=== PATIENT | female | born 1950 | race Two or more races ===

== ENCOUNTER → 2019-06-27 | Outpatient (CLI) | payer OTHER ==
--- NOTE | 2019-06-27 14:27 | RAD ---
Examination: Diagnostic left breast ultrasound. INDICATION: 69-year-old woman with 6 month history of bloody left nipple discharge recommended for ultrasound-guided core needle biopsy of intraductal masses in the subareolar left breast seen on outside facility ultrasound. By report, no prior ductogram has been performed. COMPARISON: Bilateral diagnostic mammogram of 02/16/2019, limited left breast ultrasound of 03/01/2019 and bilateral mammogram of 04/21/2019. TECHNIQUE AND FINDINGS: Grayscale and color Doppler imaging of the subareolar left breast was performed, identifying small, solid papillary projections in dilated subareolar duct corresponding with the previous left breast ultrasound findings at the 12:00 position that were recommended for biopsy. However, lacking additional information from a ductogram to delineate the extent of arborization of the intraductal papillary projections, and mindful of the likely need for elective surgical referral, I elected to defer the ultrasound-guided core needle biopsy scheduled for today in favor of performing a ductogram for better delineation of the extent of intraductal filling defects and a scheduled surgical consultation for discussion of risks and benefits of surgical excision, including excisional biopsy if ductogram fails or patient elects to have excisional biopsy rather than ultrasound-guided core needle biopsy. I discussed this with the patient's referring provider Gloria De Paz who agreed with the plan of care in rescheduling the patient for a ductogram and soon thereafter, a surgical consult. I also discussed with the patient via the site speaking tool setter apprentice service over the telephone. The patient was accompanied by her daughter. Their questions were answered to their satisfaction. IMPRESSION: Incomplete. Additional imaging is needed. Ductography for more comprehensive evaluation is recommended. A surgical consultation is also recommended. BI-RADS Category 0 Incomplete. Needs additional imaging evaluation. Left ductogram recommended. Electronically signed by: Selena Zelaya MD (06/27/2019 2:24 PM) [id number]
== END | disposition home or self-care (01) ==
LOC: US 11:49
PROVIDERS: ATTEND Nurse Practitioner Family
DX: N63.20 Unspecified lump in the left breast, unspecified quadrant (principal)
CPT/HCPCS: 76641

== ENCOUNTER → 2019-07-13 | Outpatient (CLI) | payer OTHER ==
[~2019-07-13] MED LIST: IOHEXOL 300 MG/ML 50 ML VIAL. IJ ONE
--- NOTE | 2019-07-14 13:47 | RAD ---
Examination: DUCTOGRAM MULT DUCT LT W/INJ, BREAST LEFT History: Bloody discharge from the left nipple Comparison/Correlation: 02/16/2019 mammographic images, 03/01/2019 Limited left breast ultrasound exam performed at an outside facility, 06/27/2019 left breast ultrasound exam Findings: Risks and benefits of discography were discussed with the patient via a [place] Islander speaking crocodile farmer. Informed consent was obtained. The nipple was compressed and bloody discharge was expressed from a left lower outer pore. The patient was then placed supine. Cleansing of the left nipple, areola and periareolar region with Betadine was performed. The left lower outer duct opening was cannulated successfully. Tape was then placed over the cannula and left nipple. 0.2 cc contrast was injected. Lateral medial and CC full field digital images were obtained. Contrast is noted within the left lower outer ductal system. Distention of the duct is noted at the subareolar aspect. Definite filling defect is not identified although stricture appears to present involving the duct just posterior to its distended, anterior component. Scattered fibroglandular densities are present similar upon correlation with the prior exam. Limited left breast ultrasound exam of the lower outer aspect was performed. Ductal ectasia is present at the subareolar aspect. There is intermediate echogenicity within the posterior aspect of this region of dilatation zone representing clot. It is not present on the prior exam. No flow is evident within it or surrounding this region. Ultrasound imaging of the left axilla was performed. No suspicious left axillary finding. No definite lymph node identified. Impression: BI-RADS Category 4A-suspicious for malignancy. Stricture involving a left lower outer duct near the nipple in this patient with bloody nipple discharge. Surgical consultation is recommended in determining further assessment. On 07/14/2019 at 1:40 PM, results were discussed with the referring provider. Electronically signed by: Tony Kruger MD (07/14/2019 1:44 PM) [id number]
== END ==
LOC: MAMMO 09:36
PROVIDERS: ATTEND Nurse Practitioner Family
DX: N64.52 Nipple discharge (principal)
CPT/HCPCS: 19030; 76641; 77054; Q9967

== ENCOUNTER → 2019-10-05 | Outpatient (CLI) | payer OTHER ==
[~2019-10-05] MED LIST changes: +ATOR10TA60 PO; +HYDR-3164 PO; -IOHEXOL 300 MG/ML 50 ML VIAL. IJ ONE; +LISI10TA2 PO; +METF10007 PO; +OXYC1TAB15 PO
== END | disposition home or self-care (01) ==
LOC: LAB 13:52
PROVIDERS: ATTEND Surgery
DX: Z11.59 Encounter for screening for other viral diseases (principal)
CPT/HCPCS: U0003-CS

== ENCOUNTER 2019-10-12 07:26 | Day surgery (SDC) | payer OTHER ==
[~2019-10-12] VITALS: Ht 157.5 cm; Wt 78.5 kg
[~2019-10-12 07:26] MED LIST changes: +ACETAMINOPHEN 500 MG TABLET PO PRN; -ATOR10TA60 PO; -HYDR-3164 PO; +HYDROmorphone 2 MG/ML VIAL IV PRN; +IV RINGERS,LACTATED 1000ML 1,000 ML IV SCH; +MORPHINE SULFATE 2 MG/ML VIAL. IV PRN; +ONDANSETRON PF 4 MG/2 ML VIAL. IV PRN; -OXYC1TAB15 PO; +PROCHLORPERAZINE 10 MG/2 ML VIAL. IV PRN; +fentaNYL PF VIAL 100 MCG/2 ML VIAL IV PRN
[2019-10-12] MEDS ORDERED: ONDANSETRON PF 4 MG/2 ML VIAL. ONE (09:05)
[2019-10-12] MEDS ORDERED: PROPOFOL 10 MG/ML (20ML) VIAL. IV ONE (09:05)
[2019-10-12] MEDS ORDERED: DEXAMETHASONE SOD PHOS 4 MG/ML VIAL ONE (09:05)
[2019-10-12] MEDS ORDERED: LIDOCAINE 2% PF 5 ML VIAL. ONE (09:05)
[2019-10-12] MEDS ORDERED: fentaNYL PF VIAL 100 MCG/2 ML VIAL ONE (09:08)
[2019-10-12] MEDS ORDERED: INSULIN LISPRO 100 UNIT/ML 3ML VIAL for OP,RR ONLY. SQ PRN (09:15)
[2019-10-12] MEDS ORDERED: BUPIVACAINE-EPI 0.25%-1:200000 MPF 30 ML VIAL. ONE (09:40)
[2019-10-12] MEDS: ceFAZolin SODIUM IV Push 1 GM VIAL. IVP PRN (09:48)
--- NOTE | 2019-10-12 10:40 | PDOC4 ---
Operative Note Operative Note Date: October 12, 2019 at 1038 Preoperative diagnosis: Left breast mass Postoperative diagnosis: Same Procedure: Excisional breast biopsy left breast Surgeon: Ayaan Specimen: Left breast biopsy Dictation: Patient is a 69-year-old female is noticed a lump in her left breast right of the nipple areolar complex on the left side mammogram confirms this is suspicious lesion. Procedure of excisional biopsy was explained to the patient detail risk-benefit were also discussed including bleeding infection alternatives to this procedure also discussed with the patient who seemed to understand and gave both verbal and written consent the procedure performed. Patient was taken to the operating room placed in supine position general anesthesia was initiated once patient was sleeping intubated her left breast was prepped and draped in usual sterile fashion using ChloraPrep. Area around the mass was injected with quarter percent Marcaine with epinephrine and incision was made with 15 blade scalpel this carried down through the subcutaneous tissues electrocautery right hemostasis disc completely excised the mass. The mass was sent for pathology with a long stitch on the lateral aspect of the specimen and a short stitch on the superior border of the specimen. Wound was then closed in 2 layers the deep layer running 3-0 Vicryl and the skin was reapproximated 4-0 subcuticular Monocryl Mastisol Steri-Strips and island dressings were applied. Patient was awakened extubated in the operating room taken to recovery in stable condition all sponge instrument needle counts listed as correct. NARCISA REICH MD Oct 12, 2019 10:40
--- NOTE | 2019-10-12 10:42 | DISCH ---
DISCHARGE INSTRUCTIONS Condition on Discharge Condition on Discharge: Stable Activity After Discharge Activity Instructions for Disc: No restrictions Diet after Discharge Diet after Discharge: Regular Wound Incision Care Other wound/incision instructi: May shower in 24 hours Contacting the after DC Call your doctor for: If your condition worsens Follow-Up Follow up with: Dr. Reich in 2 weeks NARCISA REICH MD Oct 12, 2019 10:42
[2019-10-12] MEDS ORDERED: HYDROcodone/APAP 5/325MG 1 TAB TABLET ONE (11:41)
[2019-10-12] MEDS ORDERED: HYDROcodone/APAP 5/325MG 1 TAB TABLET PO ONE (11:45)
[2019-10-12 11:47] VITALS: BP 169/70
[2019-10-12] MEDS ORDERED: HYDR-3164 PO (12:04)
== END 2019-10-12 13:02 | disposition home or self-care (01) ==
LOC: SURG 07:26
PROVIDERS: ATTEND Surgery
DX: N63.20 Unspecified lump in the left breast, unspecified quadrant (principal); Z79.899 Other long term (current) drug therapy
CPT/HCPCS: 19120; 82962; J0690; J1100; J2405; J2704; J3010; J3490; A7015

== ENCOUNTER → 2019-11-24 | Outpatient (CLI) | payer OTHER ==
[~2019-11-24] MED LIST changes: -ACETAMINOPHEN 500 MG TABLET PO PRN; +HYDR-3164 PO; -HYDROmorphone 2 MG/ML VIAL IV PRN; -IV RINGERS,LACTATED 1000ML 1,000 ML IV SCH; -MORPHINE SULFATE 2 MG/ML VIAL. IV PRN; -ONDANSETRON PF 4 MG/2 ML VIAL. IV PRN; -PROCHLORPERAZINE 10 MG/2 ML VIAL. IV PRN; -fentaNYL PF VIAL 100 MCG/2 ML VIAL IV PRN
== END ==
LOC: LAB 14:05
PROVIDERS: ATTEND Internal Medicine Gastroenterology
DX: Z20.828 Contact with and (suspected) exposure to other viral communicable diseases (principal)
CPT/HCPCS: U0003-CS

== ENCOUNTER 2019-12-14 07:22 | Observation (INO) | payer OTHER ==
[~2019-12-14] VITALS: Ht 157.5 cm; Wt 78.0 kg
[2019-12-14] VITALS (7 sets, daily range): BP systolic 97–142; BP diastolic 48–74
[~2019-12-14 07:22] MED LIST changes: +ACETAMINOPHEN 500 MG TABLET PO PRN; +HYDROmorphone 2 MG/ML VIAL IV PRN; +ONDANSETRON PF 4 MG/2 ML VIAL. IV PRN; +PROCHLORPERAZINE 10 MG/2 ML VIAL. IV PRN; +ceFAZolin SODIUM IV Push 1 GM VIAL. IVP PRN; +fentaNYL PF VIAL 100 MCG/2 ML VIAL IV PRN
[2019-12-14] MEDS ORDERED: ATOR10TA60 PO (07:41)
--- NOTE | 2019-12-14 07:45 | PDOC1 ---
History and Physical Date of Admission Date of Admission DATE: 12/14/19 TIME: 07:41 Identification/Chief Complaint Chief Complaint Left breast cancer Source Source: Chart review, Patient History of Present Illness History of Present Illness 69-year-old female had excisional biopsy of a left breast mass which showed to be invasive ductal carcinoma. After discussions with her family she wishes to have a left mastectomy with sentinel lymph node biopsy as well as a prophylactic right mastectomy Past Medical History Cardiovascular: HTN Endocrine: Diabetes Past Surgical History Past Surgical History: Breast Biopsy (Left breast) Family History Family History: No Significant Social History Smoke: No ALCOHOL: none Drugs: None Current Medications Current Medications Current Medications Ondansetron HCl (Zofran) 4 mg PRN Q6HRS PRN IV NAUSEA/VOMITING; Start 12/14/19 at 07:00; Stop 12/15/19 at 06:59 Fentanyl Citrate (Fentanyl 2ml Vial) 25 mcg PRN Q5MIN PRN IV MILD PAIN 1-3; Start 12/14/19 at 07:00; Stop 12/15/19 at 06:59 Fentanyl Citrate (Fentanyl 2ml Vial) 50 mcg PRN Q5MIN PRN IV MODERATE TO SEVERE PAIN; Start 12/14/19 at 07:00; Stop 12/15/19 at 06:59 Morphine Sulfate (Morphine Sulfate) 1 mg PRN Q10MIN PRN IV SEVERE PAIN 7-10; Start 12/14/19 at 07:00; Stop 12/15/19 at 06:59 Ringer's Solution 1,000 ml @ 30 mls/hr Q24H IV ; Start 12/14/19 at 07:00; Stop 12/14/19 at 18:59 Hydromorphone HCl (Dilaudid) 0.5 mg PRN Q10MIN PRN IV SEV PAIN, Second choice; Start 12/14/19 at 07:00; Stop 12/15/19 at 06:59 Prochlorperazine Edisylate (Compazine) 5 mg PACU PRN PRN IV NAUSEA, MRX1; Start 12/14/19 at 07:00; Stop 12/15/19 at 06:59 Acetaminophen (Tylenol) 1,000 mg PRN 1X PRN PO PRIOR TO PROCEDURE; Start 12/14/19 at 06:00; Stop 12/14/19 at 18:00 Cefazolin Sodium (Ancef) 1 gm 1X PREOP PRN IVP PRIOR TO PROCEDURE; Start 12/14/19 at 06:00; Stop 12/14/19 at 18:00 Active Scripts Active Reported Atorvastatin Calcium 10 Mg Tablet 1 Tab PO DAILY Lisinopril 10 Mg Tablet 10 Mg PO DAILY Metformin Hcl 1,000 Mg Tablet 1,000 Mg PO BIDWMEALS Allergies Allergies: Coded Allergies: No Known Drug Allergies (Unverified , 12/14/19) Physical Exam General: Alert, Oriented X3, Cooperative, No acute distress HEENT: Atraumatic, PERRLA, EOMI Lungs: Clear to auscultation, Normal air movement Heart: RRR, no murmurs Breasts: Abnormal mass palpable (Left breast mass) Abdomen: Normal bowel sounds, Soft, No tenderness Rectal Exam: not examined Extremities: No edema Skin: No significant lesion Neuro: Normal speech Psych/Mental Status: Mental status NL VTE Prophylaxis Ordered VTE Prophylaxis Devices: Yes VTE Pharmacological Prophylaxi: Contraindicated Assessment/Plan Assessment/Plan Left breast invasive ductal carcinoma plan for left mastectomy with sentinel lymph node biopsy as well as prophylactic right mastectomy Justifications for Admission Other Justification NARCISA REICH MD Dec 14, 2019 07:45
[2019-12-14] MEDS: IV RINGERS,LACTATED 1000ML 1,000 ML IV SCH ×2 (07:52→12:36)
[2019-12-14] MEDS ORDERED: ISOSULFAN BLUE 1% 50 MG/5 ML VIAL. SQ ONE (08:53)
[2019-12-14] MEDS ORDERED: BUPIVACAINE-EPI 0.5%-1:200000 MPF 30 ML VIAL. ONE (08:53)
[2019-12-14] MEDS ORDERED: hydrALAZINE 20 MG/ML VIAL. ONE (11:07)
[2019-12-14] MEDS ORDERED: ONDANSETRON PF 4 MG/2 ML VIAL. ONE (11:08)
[2019-12-14] MEDS ORDERED: PROPOFOL 10 MG/ML (20ML) VIAL. IV ONE (11:08)
[2019-12-14] MEDS ORDERED: LIDOCAINE 2% PF 5 ML VIAL. ONE (11:08)
[2019-12-14] MEDS ORDERED: DEXAMETHASONE SOD PHOS 4 MG/ML VIAL ONE (11:09)
[2019-12-14] MEDS ORDERED: SEVOFLURANE 61 TO 120 MINUTES. IH ONE (11:09)
[2019-12-14] MEDS ORDERED: fentaNYL PF VIAL 100 MCG/2 ML VIAL ONE ×2 (11:23→12:08)
[2019-12-14] MEDS ORDERED: FAMOTIDINE 20 MG/2 ML VIAL ONE (11:23)
[2019-12-14] MEDS ORDERED: KETOROLAC 30 MG/ML VIAL. ONE (11:25)
--- NOTE | 2019-12-14 11:54 | PDOC4 ---
Operative Note Operative Note Date: 2019 at 1149 Preoperative diagnosis: Left breast cancer Postoperative diagnosis: Same Procedure: Left mastectomy with left sentinel lymph node biopsy right prophylactic mastectomy Specimen: Left breast, right breast, left sentinel lymph node Surgeon: Ayaan Dictation: Patient is a 69-year-old female whose had biopsy-proven ductal carcinoma of the left breast. Procedure of mastectomy with sentinel lymph node biopsy was explained to the patient detail respite effects were also discussed including bleeding infection alternatives to this procedure also discussed with the patient who seemed to understand and gave both verbal and written consent to have the procedure performed. Patient was taken to the operating room placed in the supine position general anesthesia was initiated once patient was sleeping intubated her chest and axilla were prepped and draped usual sterile fashion using ChloraPrep. An area around the left nipple areolar complex was injected with Lymphazurin once this was all been injected in 4 quadrants is allowed to percolate for 10 minutes at that point an area in the left axilla which was hot by the counter was marked and incised with 15 blade scalpel is carried down thr ough the subcutaneous tissue using electrocautery right hemostasis a blue marked lymph channel was followed down to a fairly large lymph node in the left axilla this was excised and sent for pathology. Tensions were then turned to the mastectomy elliptical incision around the nipple areolar complex was extended proximally and distally this carried down through the subcutaneous tissues electrocautery right hemostasis electrocautery was used to fully excise the breast from the margins of the clavicle to the sternum to the latissimus laterally and the inframammary fold medially. The breast was sent for pathology marked with a long stitch lateralshort stitch in the superior margin. Hemostasis was controlled with electrocautery. Attention was then turned to the right breast similarly was excised using a 10 blade scalpel to make the incision and followed with electrocautery fully excise the breast with the same margins superior clavicle medial sternum inframammary fold inferiorly and the latissimus laterally. The specimen was similarly marked with a suture. Electrocautery was used to control hemostasis and then the wounds both sides were closed in 2 layers the deep layer 3 oh single interrupted Vicryls 2 7 [place] AVIS flat drains were placed on the anterior chest wall beneath the subcutaneous tissue these were brought out through a separate stab incision in the lateral inferior aspect of the incision these were sewn into place with 2-0 silk sutures. Skin was closed with 4-0 subcuticular Monocryl Mastisol Steri-Strips and 4 x 4's and Medipore tape were applied as a dressing. Patient was awakened and extubated in the operating room taken to recovery in stable condition all sponge instrument needle counts listed as correct estimated blood loss 60 mL. NARCISA REICH MD Dec 14, 2019 11:54
[2019-12-14] MEDS ORDERED: MORPHINE SULFATE 2 MG/ML VIAL. IV PRN (12:00)
[2019-12-14] MEDS ORDERED: ONDANSETRON PF 4 MG/2 ML VIAL. IV PRN (12:00)
[2019-12-14] MEDS ORDERED: oxyCODONE/APAP 5/325 1 TAB TABLET PO PRN ×2 (12:00)
[2019-12-14] MEDS ORDERED: 0.9 % SODIUM CHLORIDE 10 ML DISP.SYRIN. IV PRN (12:00)
[2019-12-14] MEDS ORDERED: INSULIN LISPRO 100 UNIT/ML 3ML VIAL for OP,RR ONLY. SQ PRN (12:15)
[2019-12-14] MEDS ORDERED: MORPHINE SULFATE 2 MG/ML VIAL. ONE (12:59)
--- NOTE | 2019-12-14 13:00 | NUR ---
Ambulated to bathroom with steady gait. Voided 400cc blue urine. Return back to bed.
[2019-12-14] MEDS: MORPHINE SULFATE 2 MG/ML VIAL. IV PRN ×2 (13:03→13:13)
--- NOTE | 2019-12-14 13:23 | NUR ---
Arrived to unit by bed from PACU. Alert and oriented x's 4. No c/o at this time. Dressings x's 2 on chest are d/i with AVIS's x's 2 intact. Arms elevated on pillows. Eating some jello. IVF's intact and infusing. SCD's on bilaterally. Oriented to room and controls. Side rails up x's 2 with call light in reach. Daughter and Niece at bedside. Cont. monitor.
--- NOTE | 2019-12-14 13:57 | RAD ---
Left breast radiopharmaceutical injection for sentinel node mapping. INDICATION: 69-year-old woman with left breast cancer. TECHNIQUE AND FINDINGS: Following review of the patient's prior relevant imaging, informed consent was obtained and an appropriate procedural pause observed. Using clean sterile technique and topical anesthesia, a total of 1 mCi of technetium labeled Tilmanocept radiopharmaceutical was administered in a single periareolar injection in the left breast at approximately 9:30 AM on 12/14/2019. The wheal was massaged. Patient tolerated procedure without incident. She was transferred in stable condition to perioperative care unit for further care and management. No apparent complications. IMPRESSION: Left breast radiopharmaceutical injection for sentinel node mapping. Electronically signed by: Selena Zelaya MD (12/14/2019 1:54 PM) [id number]
[2019-12-14] MEDS: cefOXitin SODIUM IV Push 1 GM VIAL. IVP SCH ×2 (14:40→21:08)
[2019-12-14] MEDS ORDERED: DEXTROSE 50% 25 GM / 50ML DISP.SYRIN. IV PRN (17:00)
--- NOTE | 2019-12-14 17:00 | NUR ---
Pt took own medication of metformin. Instructed not to take her own medications. Gave pill bottles to daughter to take home. Encourage to increase po fluids. Will monitor I&O.
[2019-12-14] MEDS: INSULIN LISPRO 300 UNITS/3 ML VIAL. SQ SCH (17:03)
[2019-12-14] MEDS: KETOROLAC 15 MG/ML VIAL. IV SCH (18:37)
[2019-12-14] MEDS ORDERED: PHENAZOPYRIDINE 200 MG TABLET. PO SCH (19:00)
[2019-12-14] MEDS: IV DEXTROSE 5%-LACT RINGERS 1,000 ML IV SCH (20:10)
[2019-12-15] MEDS: KETOROLAC 15 MG/ML VIAL. IV SCH ×3 (00:04→11:11)
[2019-12-15 03:00] VITALS: BP 109/57
[2019-12-15] MEDS: IV DEXTROSE 5%-LACT RINGERS 1,000 ML IV SCH (03:05)
[2019-12-15] MEDS: cefOXitin SODIUM IV Push 1 GM VIAL. IVP SCH (05:55)
[2019-12-15 06:38] VITALS: BP 124/65
[2019-12-15 07:05] LABS: BASO % 0 % (0-3); EOS % 0 % (0-3); HEMATOCRIT 26.9 % (36.0-47.0); LYMPH # 2.3 x10^3/uL (1.0-4.8); LYMPH % 27 % (24-48); MEAN CORPUSCULAR HEMOGLOBIN 29 pg (25-35); MEAN CORPUSCULAR HGB CONC 34 g/dL (31-37); MEAN CORPUSCULAR VOLUME 87 fL (79-100); MONO # 0.5 x10^3/uL (0.0-1.1); MONO % 6 % (0-9); NEUT # 5.6 x10^3/uL (1.8-7.7); NEUT % 66 % (31-73); PLATELET COUNT 214 x10^3/uL (140-400); RED BLOOD COUNT 3.09 x10^6/uL (3.50-5.40); RED CELL DISTRIBUTION WIDTH 13.6 % (11.5-14.5); WHITE BLOOD COUNT 8.4 x10^3/uL (4.0-11.0)
[2019-12-15] MEDS: INSULIN LISPRO 300 UNITS/3 ML VIAL. SQ SCH ×2 (07:49→11:11)
--- NOTE | 2019-12-15 08:28 | DISCH ---
DISCHARGE INSTRUCTIONS Condition on Discharge Condition on Discharge: Stable Activity After Discharge Activity Instructions for Disc: Activity as tolerated, Avoid exertion Lifting Instructions after Dis: No heavy lifting, No pulling or pushing Driving Instructions after Dis: Do not drive Diet after Discharge Diet after Discharge: Regular Wound Incision Care Other wound/incision instructi: drain care as instructed Contacting the after DC Call your doctor for: If your condition worsens Follow-Up Follow up with: Dr Kuo 12/19 at 145pm, call with questions [phone] CLINTON MONZON APRN Dec 15, 2019 08:28
[2019-12-15] MEDS ORDERED: OXYC1TAB15 PO (08:29)
--- NOTE | 2019-12-15 08:32 | PDOC3 ---
Discharge Summary Visit Information Date of Admission: Dec 14, 2019 Date of Discharge: Dec 15, 2019 Admitting Diagnosis: Left breast cancer Final Diagnosis Left breast cancer Brief Hospital Course Allergies Allergies Coded Allergies Type Severity Reaction Last Updated Verified No Known Drug Allergies 12/14/19 No Vital Signs Vital Signs Date Time Temp Pulse Resp B/P (MAP) Pulse Ox O2 Delivery O2 Flow Rate FiO2 12/15/19 06:38 98.1 59 18 124/65 (84) 96 Room Air 98.1 12/14/19 12:30 10 Lab Results Laboratory Tests Test 12/14/19 07:25 12/14/19 07:52 12/14/19 12:12 12/14/19 16:39 Coronavirus (PCR) Not detected (Not Detected) SARS-CoV-2 Antigen (Rapid) Negative (NEGATIVE) Glucose (Fingerstick) 98 mg/dL (70-99) 130 mg/dL (70-99) 304 mg/dL (70-99) Test 12/14/19 19:58 12/15/19 06:10 12/15/19 06:51 Glucose (Fingerstick) 269 mg/dL (70-99) 115 mg/dL (70-99) White Blood Count 8.4 x10^3/uL (4.0-11.0) Red Blood Count 3.09 x10^6/uL (3.50-5.40) Hemoglobin 9.0 g/dL (12.0-15.5) Hematocrit 26.9 % (36.0-47.0) Mean Corpuscular Volume 87 fL (79-100) Mean Corpuscular Hemoglobin 29 pg (25-35) Mean Corpuscular Hemoglobin Concent 34 g/dL (31-37) Red Cell Distribution Width 13.6 % (11.5-14.5) Platelet Count 214 x10^3/uL (140-400) Neutrophils (%) (Auto) 66 % (31-73) Lymphocytes (%) (Auto) 27 % (24-48) Monocytes (%) (Auto) 6 % (0-9) Eosinophils (%) (Auto) 0 % (0-3) Basophils (%) (Auto) 0 % (0-3) Neutrophils # (Auto) 5.6 x10^3/uL (1.8-7.7) Lymphocytes # (Auto) 2.3 x10^3/uL (1.0-4.8) Monocytes # (Auto) 0.5 x10^3/uL (0.0-1.1) Eosinophils # (Auto) 0.0 x10^3/uL (0.0-0.7) Basophils # (Auto) 0.0 x10^3/uL (0.0-0.2) Laboratory Tests Test 12/14/19 12:12 12/14/19 16:39 12/14/19 19:58 12/15/19 06:10 Glucose (Fingerstick) 130 mg/dL (70-99) 304 mg/dL (70-99) 269 mg/dL (70-99) White Blood Count 8.4 x10^3/uL (4.0-11.0) Red Blood Count 3.09 x10^6/uL (3.50-5.40) Hemoglobin 9.0 g/dL (12.0-15.5) Hematocrit 26.9 % (36.0-47.0) Mean Corpuscular Volume 87 fL (79-100) Mean Corpuscular Hemoglobin 29 pg (25-35) Mean Corpuscular Hemoglobin Concent 34 g/dL (31-37) Red Cell Distribution Width 13.6 % (11.5-14.5) Platelet Count 214 x10^3/uL (140-400) Neutrophils (%) (Auto) 66 % (31-73) Lymphocytes (%) (Auto) 27 % (24-48) Monocytes (%) (Auto) 6 % (0-9) Eosinophils (%) (Auto) 0 % (0-3) Basophils (%) (Auto) 0 % (0-3) Neutrophils # (Auto) 5.6 x10^3/uL (1.8-7.7) Lymphocytes # (Auto) 2.3 x10^3/uL (1.0-4.8) Monocytes # (Auto) 0.5 x10^3/uL (0.0-1.1) Eosinophils # (Auto) 0.0 x10^3/uL (0.0-0.7) Basophils # (Auto) 0.0 x10^3/uL (0.0-0.2) Test 12/15/19 06:51 Glucose (Fingerstick) 115 mg/dL (70-99) Brief Hospital Course Ms. Pinto is a 69 old female who underwent Left mastectomy with left sentinel lymph node biopsy right prophylactic mastectomy. postoperatively tolerating diet, ambulating, and pain controlled. Will discharge home with drain and FU on 12/19 Discharge Information Condition at Discharge: Stable Follow Up: Weeks (1) Disposition/Orders: D/C to Home Scheduled Atorvastatin Calcium (Atorvastatin Calcium) 10 Mg Tablet, 1 TAB PO DAILY for high cholesterol, #30 Ref 5 (Reported) Entered as Reported by: Taylor Easley on 12/14/19740 Last Action: New Order on 12/14/19740 by Taylor Easley Lisinopril (Lisinopril) 10 Mg Tablet, 10 MG PO DAILY for FOR HYPERTENSION, #30 Ref 0 (Reported) Entered as Reported by: GREER ALVARENGA on 10/10/191651 Last Taken: Unknown Dose on 12/13/19 2200 Last Action: Last Taken Edited on 12/14/19739 by Taylor Easley Metformin Hcl (Metformin Hcl) 1,000 Mg Tablet, 1,000 MG PO BIDWMEALS for diabetes, (Reported) Entered as Reported by: GREER ALVARENGA on 10/10/191651 Last Taken: Unknown Dose on 12/13/192099 Last Action: Last Taken Edited on 12/14/19739 by Taylor Easley Scheduled PRN Oxycodone/Apap 5-325 (Percocet 5-325 Mg Tablet ) 1 Each Tablet, 1 TAB PO PRN Q4HRS PRN for MILD PAIN, 1ST CHOICE, #30 Ref 0 Prescribed by: Clinton Padilla on 12/15/19828 Justicifation of Admission Dx: Justifications for Admission: Justification of Admission Dx: Yes Comments: breast cancer CLINTON PADILLA APRN Dec 15, 2019 08:32 NARCISA REICH MD Dec 15, 2019 08:43
--- NOTE | 2019-12-15 10:00 | NUR ---
Pt transferred to surgery by bed. Addendum: 12/15/19 at 1059 by ZAN KING RN Note above written on wrong patient
[2019-12-15 11:10] VITALS: BP 109/67
--- NOTE | 2019-12-15 11:45 | NUR ---
Discharge instructions given with prescriptions. Answered questions and concerns. Both pt and daughter verbalized understanding. Demonstrated on how to care for AVIS drains. Discharged home escorted out by w/c accompanied daughter and friend.
== END 2019-12-15 11:45 | disposition home or self-care (01) ==
LOC: SURG 07:22 → 4 SOUTHEST 12:23
PROVIDERS: ADMIT Surgery; ATTEND Surgery
DX: C50.912 Malignant neoplasm of unspecified site of left female breast (principal); Z20.828 Contact with and (suspected) exposure to other viral communicable diseases; I10 Essential (primary) hypertension; E11.9 Type 2 diabetes mellitus without complications; Z79.84 Long term (current) use of oral hypoglycemic drugs; Z40.01 Encounter for prophylactic removal of breast; Z79.899 Other long term (current) drug therapy
CPT/HCPCS: 19303; 36415; 38525; 38792; 82962; 85025; 87426; 96361; 96372; 96374; 96375; 96376; A7015; A9520; G0378; G0379; J0360; J0690; J0694; J1100; J1815; J1885; J2270; J2405; J2704; J3010; J3490; J7120; J7121; Q9968; U0003